=== PATIENT | male | born 1945 | race Caucasian/White ===

== ENCOUNTER 2016-04-19 14:36 | Emergency (ER) | payer OTHER, MEDICARE ==
--- NOTE | 2016-04-19 15:46 | EDPHY ---
HPI/HX/ROS/PE/MDM Narrative: Chief complaint: Right-sided chest and back pain HPI: 71-year-old male presenting with 2-3 days of severe pain in his right back and chest. He was seen in the clinic 2 days ago and diagnosed with muscle strain and started on a muscle relaxer. He took this yesterday with no relief whatsoever. He today he has noticed a rash on the right side of his chest and his also noticed a rash in the right side of his upper back. He denies any shortness of breath. Pain is constant. There are no aggravating or alleviating factors. Does not hurt to take a deep breath. No fevers or chills. No cough. No abdominal pain. No substernal chest pain or pressure. ROS: 10 point Review of Systems is negative except as noted in the HPI. Past medical history: Esophageal cancer in 2001 Hypertension Allergies: Lisinopril Physical exam: Gen: Awake, Alert, No Distress HEENT: Nose: no rhinorrhea Eyes: PERRLA, EOMI Mouth: Moist mucosa Neck: Supple, no JVD Chest:lungs clear to auscultation, there is a vesicular rash on an erythematous base in a dermatomal distribution on his right thoracic back extending to his right chest. It is tender to touch. Heart: S1, S2 normal, no murmur Abd: Soft, non-tender, no guarding Back: no CVA tenderness, no midline tenderness Ext: no edema, non-tender Skin: no rash Neuro: CN II-XII intact, Sensation grossly intact, Strength 5/5 in bilateral upper and lower extremities General Time Seen by Provider: 04/19/16 15:32 Initial Vital Signs: Initial Vital Signs Temperature (C) 36.3 C 04/19/16 14:39 Heart Rate 71 04/19/16 14:39 Respiratory Rate 18 04/19/16 14:39 Blood Pressure 122/72 H 04/19/16 14:39 O2 Sat (%) 94 04/19/16 14:39 O2 Delivery Mode Room Air Allergies/Adverse Reactions: lisinopril Allergy (Verified 12/26/12 18:10) Home Medications: Medication Instructions Recorded Atorvastatin Calcium 04/19/16 GABAPENTIN 400 mg PO BID #20 tablet 04/19/16 Pantoprazole Sodium 04/19/16 Triamterene-Hctz 37.5-25 mg Tb 04/19/16 Valacyclovir HCl [Valtrex] 1,000 mg PO TID #21 tab 04/19/16 Venlafaxine 75MG (*) 04/19/16 amLODIPine BESYLATE 04/19/16 oxyCODONE/APAP 5/325 [Percocet 1 - 2 tab PO Q4H PRN #10 tab 04/19/16 5/325 (*)] Departure - Departure Disposition: Home, Routine, Self-Care Clinical Impression: Shingles Condition: Good Instructions: Shingles (ED) Additional Instructions: You may take Percocet as needed for pain. Take your full course of antivirals. Take the Neurontin for nerve pain as well. Follow up with Dr. Flores in about a week for recheck. Return to the emergency depart for worsening pain, shortness of breath, fevers, chills, worsening rash, or any other concerns. Referrals: Lee Ann Araujo MD [Medical Doctor] - As per Instructions Prescriptions: GABAPENTIN 400 mg PO BID #20 tablet oxyCODONE/APAP 5/325 [Percocet 5/325 (*)] 1 - 2 tab PO Q4H PRN #10 tab PRN Reason: Pain, Severe Valacyclovir HCl [Valtrex] 1,000 mg PO TID #21 tab
[2016-04-19] MEDS ORDERED: OXYCODONE/APAP 5/325MG PREPACK#4 BTL TAKEHOME ONE (15:49)
[2016-04-19] MEDS ORDERED: valACYclovir 500 MG TAB PO ONE (15:49)
[2016-04-19 16:48] VITALS: BP 141/78; PULSE 72; RESP 15; TEMP 97.7; O2SAT 95
== END 2016-04-19 16:48 | disposition home or self-care (01) ==
DX: B02.9 Zoster without complications (principal); I10 Essential (primary) hypertension